=== PATIENT | female | born 1930 | race Caucasian/White ===

== ENCOUNTER 2016-07-20 14:16 | Emergency (ER) | payer MEDICARE, OTHER ==
--- NOTE | 2016-07-20 17:31 | DIAGNOSTIC IMAGING REPORT ---
PROCEDURE: XR HIP 2VW W W/O AP PELVIS-LT INDICATION: TRAUMA/INJURY TECHNIQUE: AP view of the pelvis and hips with lateral view of the left hip. COMPARISON: None. FINDINGS: LEFT HIP: Mildly decreased mineralization. No fracture. Normal bony alignment. Moderate degenerative joint space loss in the femoral acetabular joint. No unusual adjacent calcifications. Moderate to heavy calcific atherosclerosis. PELVIS: Mildly decreased mineralization. Pelvic rings are intact. No fractures. Normal alignment. Mild to moderate degenerative change at the right hip joint. Moderate retained stool in the distal colon and rectum. Moderate to heavy calcific atherosclerosis. Partially imaged lower lumbar scoliosis. IMPRESSION: 1. Intact left hip. 2. Moderate obstipation. 3. Moderate to heavy calcific atherosclerosis. 4. Degenerative changes in the femoral acetabular joints.
--- NOTE | 2016-07-20 17:33 | DIAGNOSTIC IMAGING REPORT ---
PROCEDURE: XR ABDOMEN 1 VIEW INDICATION: ABDOMINAL DISTENTION TECHNIQUE: Single view upright abdomen. COMPARISON: None. FINDINGS: No free intraperitoneal air. Nonspecific, nonobstructive bowel gas pattern. Moderate amount of retained stool in the distal colon and rectum. No suspicious mass, mass effect, or calcifications. Moderate scoliosis of the thoracolumbar spine. Severe compression fracture of T12 with kyphoplasty changes. Moderate atherosclerosis. IMPRESSION: 1. Moderate distal colon and rectal obstipation. 2. No evidence of small bowel obstruction. 3. Atherosclerosis. 4. Scoliosis.
--- NOTE | 2016-07-20 18:53 | ED ORDER SUMMARY ---
..... Patient: ARIANA ROLAND OrderSheet [facility] VisitID: [id number] [address] [place] [address] 86y, F Registration Date/Time: 07/20/2016 ORDER SHEET Weight: 36.2 kg (stated) Allergies: No Known Drug Allergy GENERAL ORDERS: Hip 2V Left w AP Pelvis Urgent (16:31 07/20/2016 ABlanchette PA-C) (Ack 16:34 Lien) (17:34 Mariusz) Abdomen 1V Urgent (16:07/20/2016 ABlanchette PA-C) (Ack 16:34 Lien) (17:34 Mariusz) MEDICATION ORDERS: Acetaminophen PO 325 mg (NOW) (15:07/20/2016 ABlanchette PA-C) (Cancelled: Other15:20 ABlanchette PA-C) Benadryl PO 12.5 mg (NOW) (15:07/20/2016 ABlanchette PA-C) (Cancelled: Other15:20 ABlanchette PA-C) IV FLUIDS: ORDER SHEET NOTES: [Electronically signed by Opal Griffin R.N. (19:07/20/2016)] [Electronically signed by Hillary Underwood PA-C (00:15 07/21/2016)] [Electronically locked/signed by Opal Griffin R.N. (19:07/20/2016)]
--- NOTE | 2016-07-20 18:53 | ED NURSING NOTES ---
Clinical Report - Nurses [facility] [address] [place] [address] 07/20/2016 14:24 Patient: ARIANA ROLAND TRIAGE Triage time 14:39. Acuity: LEVEL 3. Chief Complaint: ABDOMINAL PAIN. Alert. No acute distress. MARK COMA SCORE: [place] Coma Scale: 15- eyes open spontaneously (4); best verbal response- oriented x 4 (5); best motor response- obeys commands (6). --14:53 Opal Griffin R.N. 14:39 07/20/16. BP: 134/74. HR: 80. RR: 18. O2 saturation: 94% on room air. Temp: 98.7 F (oral). Pain level now: cannot qualify. --14:53 Opal Griffin R.N. Weight: 36.2 kg stated. Height/Length: 54 inches Per Patient. BMI: 19.3. --14:51 Opal Griffin R.N. Medications Vit D3 61299 units, weekly. --15:00 Opal Griffin R.N. Memantine HCl Oral (Tablet 10 mg) 2 tablets, daily. --15:01 Opal Griffin R.N. AmLODIPine Besylate Oral (Tablet 10 mg) 1 tablet, daily. --15:01 Opal Griffin R.N. Allergies No Known Drug Allergy. --15:11 Opal Griffin R.N. History Arrived by private vehicle. Historian: family. Accompanied by family. Primary physician (Faraz). Onset. (a "couple of days ago"). Describes the quality as "pain". Relates location as generalized across abdomen. ( daughter here states her mother's abd is distended, Lives with her daughter). Reports last BM was yesterday. No nausea or vomiting. 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 SOCIAL HX: Former smoker. No alcohol use or drug use. LEARNING NEEDS ASSESSMENT: The learning needs assessment revealed no barriers. FALL RISK ASSESSMENT: Fall risk assessment completed. Risk factors identified include patient medications and impairment of mobility. Fall interventions initiated. Patient placed on stretcher. Side rails up x2. Brakes on Bed in low position. Family at bedside. FUNCTIONAL ASSESSMENT: Functional assessment performed: requires assistance with the activities of daily living; mobility impairment present- this mobility impairment is an ongoing problem; cognitive impairment- senile dementia- this cognitive impairment is an ongoing problem. --14:53 Opal Griffin R.N. PROBLEMS: Scoliosis. Degenerative Joint Disease. Hypertension. COPD - Chronic Obstructive Pulmonary Disease. --14:49 Opal Griffin R.N. UTI - Urinary Tract Infection. --14:51 Opal Griffin R.N. ADDITIONAL SURGERIES: Back Surgery. --14:49 Opal Griffin R.N. Hysterectomy. --14:49 Opal Griffin R.N. Assessment GENERAL / NEURO / PSYCH: Alert. Oriented X 4. Appears in no acute distress. Patient appears calm and cooperative. RESPIRATORY: Respirations not labored. SKIN: Skin is warm and dry. --14:53 Opal Griffin R.N. Interventions ID band on patient. To treatment room. --14:53 Opal Griffin R.N. PHYSICAL ASSESSMENT 14:53 07/20/16. To room via wheelchair. Patient gowned. GENERAL / NEURO / PSYCH: Alert. Appears in no acute distress. RESPIRATORY: Respirations not labored. CVS: Capillary refill less than 2 seconds. SKIN: Skin is warm and dry. --14:53 Opal Griffin R.N. NURSING PROGRESS NOTES 14:53 07/20/16. Patient gowned. Head of bed elevated. Call light placed in reach. Side rails up x 2. Bed placed in lowest position. Brakes of bed on. --14:53 Opal Griffin R.N. 16:30. The patient is calm and resting quietly. Overall patient status is the same- she states feels the same. SKIN: Skin is warm and dry. --16:40 Opal Griffin R.N. 16:41 07/20/16. Patient transported to radiology by stretcher with tech. --16:41 Opal Griffin R.N. Patient returned from radiology by stretcher with tech. --17:07 Opal Griffin R.N. 17:07 07/20/16. :family confirmed. Catheterized urine collected; sample sent to lab. Specimen labeled in the presence of the patient (with femcath kit per aseptic tech). --17:07 Opal Griffin R.N. [id number] fleets mineral oil enema given, pt lies on side holding the fluid, BSC in room. --18:16 Opal Griffin R.N. 18:35 pt had large formed BM, assisted to dress by family, discharge done by PA. --19:15 Opal Griffin R.N. 16:00 07/20/16. BP: 132/64. HR: 70. RR: 18. O2 saturation: 96% on room air. --19:18 Opal Griffin R.N. 17:30 07/20/16. BP: 134/69. HR: 72. RR: 18. O2 saturation: 97% on room air. --19:19 Opal Griffin R.N. DISPOSITION / DISCHARGE Departure time: 1855. The patient was discharged by the physician assistant women's rowing coach. --19:14 Opal Griffin R.N. 19:13 07/20/16. BP: 154/87. HR: 76. RR: 18. O2 saturation: 97% on room air. Pain level now: cannot qualify. --19:14 Opal Griffin R.N. Locked/Released at 07/20/2016 19:19 by Opal Griffin R.N.
--- NOTE | 2016-07-20 18:53 | ED CLINICAL REPORT ---
Clinical Report - Physicians/Mid Levels [facility] [address] [place] [address] 07/20/2016 14:24 Patient: ARIANA NIXON Time Seen: 1446. Arrived- By private vehicle. Historian- patient. HISTORY OF PRESENT ILLNESS Chief Complaint: ABDOMINAL PAIN. It is described as dull and it is described as located in the left lower quadrant. At its maximum, severity described as 2 / 10. When seen in the E.D., severity described as 2 / 10. This started yesterday brought in by daughter who states she has some discomfort of her left abdomen,and that 'her belly button is displaced and that wasn't like that before' and possibly her left hip hurts her...pt lives with her daughter who has been her sole career agent for the past 15 months, and states she has insurance that will cover respite care, but needs to go through the ER for it to be covered...she states she is having increased difficultey gettiing her mother to move, walk, and feels she is not able to fully care for her in an ongoing capacity. and is still present. No nausea, loss of appetite, vomiting or diarrhea. Similar symptoms previously: Recent medical care: The patient was seen recently at another facility in a clinic. REVIEW OF SYSTEMS The patient has had constipation. No difficulty with urination, fever or chills. PAST HISTORY See nurses notes. constipation. Problems: UTI - Urinary Tract Infection. COPD - Chronic Obstructive Pulmonary Disease. Hypertension. Scoliosis. Degenerative Joint Disease. Medications: AmLODIPine Besylate Oral (Tablet 10 mg) 1 tablet, daily. Memantine HCl Oral (Tablet 10 mg) 2 tablets, daily. Vit D3 79037 units, weekly. Allergies: No Known Drug Allergy. SOCIAL HISTORY Former smoker. No alcohol use or drug use. FAMILY HISTORY Negative. ADDITIONAL NOTES The nursing notes have been reviewed with agreement regarding the chief complaint, HPI, ROS, PMH and patient medications and allergies. PHYSICAL EXAM Vital Signs: 07/20/2016 14:39 BP: 134/74. HR: 80. RR: 18. O2 saturation: 94%. Temp: 98.7 F. Have been reviewed. Appearance: Alert. Oriented X3. No acute distress. Eyes: Pupils equal, round and reactive to light. Eyes normal inspection. ENT: Ears normal. Nose normal. Pharynx normal. Neck: Normal inspection. Neck supple. CVS: Normal heart rate and rhythm. Heart sounds normal. Pulses normal. Respiratory: No respiratory distress. Breath sounds normal. Chest nontender. Abdomen: Soft and nontender. Bowel sounds normal. No organomegaly. No mass. Skin: Skin warm and dry. Normal skin color. No rash. Normal skin turgor. Extremities: No lower extremity edema. LABS, X-RAYS, AND EKG X-Rays: KUB negative. Left hip negative. KUB: (Name: Ariana Nixon : 1930 MR#: [id number] Ordering Provider: MAYUR TORRES Exam(s): XR ABDOMEN 1 VIEW Date of Exam: 07/20/2016 __ PROCEDURE: XR ABDOMEN 1 VIEW INDICATION: ABDOMINAL DISTENTION TECHNIQUE: Single view upright abdomen. COMPARISON: None. FINDINGS: No free intraperitoneal air. Nonspecific, nonobstructive bowel gas pattern. Moderate amount of retained stool in the distal colon and rectum. No suspicious mass, mass effect, or calcifications. Moderate scoliosis of the thoracolumbar spine. Severe compression fracture of T12 with kyphoplasty changes. Moderate atherosclerosis. IMPRESSION: 1. Moderate distal colon and rectal obstipation. 2. No evidence of small bowel obstruction. 3. Atherosclerosis. 4. Scoliosis. Electronically Final signed by:Ayaka Alvarado MD 07/20/2016 5:33:21 PM Technologist: CARI). The X-rays were independently viewed by me, interpreted by the radiologist and discussed with the radiologist. Lt Hip X-ray: No fracture. (Name: Ariana Nixon : 1930 MR#: [id number] Ordering Provider: MAYUR TORRES Exam(s): XR HIP 2VW W W/O AP PELVIS-LT Date of Exam: 07/20/2016 __ PROCEDURE: XR HIP 2VW W W/O AP PELVIS-LT INDICATION: TRAUMA/INJURY TECHNIQUE: AP view of the pelvis and hips with lateral view of the left hip. COMPARISON: None. FINDINGS: LEFT HIP: Mildly decreased mineralization. No fracture. Normal bony alignment. Moderate degenerative joint space loss in the femoral acetabular joint. No unusual adjacent calcifications. Moderate to heavy calcific atherosclerosis. PELVIS: Mildly decreased mineralization. Pelvic rings are intact. No fractures. Normal alignment. Mild to moderate degenerative change at the right hip joint. Moderate retained stool in the distal colon and rectum. Moderate to heavy calcific atherosclerosis. Partially imaged lower lumbar scoliosis. IMPRESSION: 1. Intact left hip. 2. Moderate obstipation. 3. Moderate to heavy calcific atherosclerosis. 4. Degenerative changes in the femoral acetabular joints. Electronically Final signed by:Ayaka Alvarado MD 07/20/2016 5:31:45 PM Technologist: CARI). The X-rays were independently viewed by me, interpreted by the radiologist and discussed with the radiologist. PROGRESS AND PROCEDURES Course of Care: 14:53 07/20/16. Patient gowned. Head of bed elevated. Call light placed in reach. Side rails up x 2. Bed placed in lowest position. Brakes of bed on. --14:53 Opal Griffin, RCrispinNCrispin 16:30. The patient is calm and resting quietly. Overall patient status is the same- she states feels the same. SKIN: Skin is warm and dry. --16:40 Opal Griffin R.N. 16:41 07/20/16. Patient transported to radiology by stretcher with tech. --16:41 Opal Griffin R.N. Patient returned from radiology by stretcher with tech. --17:07 Opal Griffin R.N. 17:07 07/20/16. :family confirmed. Catheterized urine collected; sample sent to lab. Specimen labeled in the presence of the patient (with femcath kit per aseptic tech). --17:07 Opal Griffin R.N. [id number] fleets mineral oil enema given, pt lies on side holding the fluid, BSC in room. --18:16 Opal Griffin R.N. 18:35 pt had large formed BM, assisted to dress by family, discharge done by PA. --19:15 Opal Griffin R.N. 16:00 07/20/16. BP: 132/64. HR: 70. RR: 18. O2 saturation: 96% on room air. --19:18 Opal Griffin R.N. 17:30 07/20/16. BP: 134/69. HR: 72. RR: 18. O2 saturation: 97% on room air. --19:19 Opal Griffin R.N. Patient is stable. Physical exam findings are improved. Symptoms much better. CLINICAL IMPRESSION Constipation INSTRUCTIONS No strenuous activity. Drink plenty of fluids. (fruit paste recipe you can find online daily for avoidance of contipation discuss with Dr. blakely respite care vs placement in NH or assisted living.). Warnings: GENERAL WARNINGS: Return or contact your physician immediately if your condition worsens or changes unexpectedly, if not improving as expected, or if other problems arise. Your Current Medications: CONTINUE TAKING THE FOLLOWING MEDICATIONS: AmLODIPine Besylate Oral : Tablet 10 mg, 1 tablet daily. Memantine HCl Oral : Tablet 10 mg, 2 tablets daily. Vit D3* : 22922 units weekly. Follow-up: Follow up with your doctor if not better. Understanding of the discharge instructions verbalized by patient and parent. (Electronically signed by Mayur Torres PA-C 07/21/2016 0:15)
--- NOTE | 2016-07-20 18:53 | ED ORDER SUMMARY ---
..... Patient: ARIANA ROLAND OrderSheet [facility] VisitID: [id number] [address] [place] [address] 86y, F Registration Date/Time: 07/20/2016 ORDER SHEET Weight: 36.2 kg (stated) Allergies: No Known Drug Allergy GENERAL ORDERS: Hip 2V Left w AP Pelvis Urgent (16:31 07/20/2016 ABlanchette PA-C) (Ack 16:34 Lien) (17:34 Mariusz) Abdomen 1V Urgent (16:07/20/2016 ABlanchette PA-C) (Ack 16:34 Lien) (17:34 Mariusz) MEDICATION ORDERS: Acetaminophen PO 325 mg (NOW) (15:07/20/2016 ABlanchette PA-C) (Cancelled: Other15:20 ABlanchette PA-C) Benadryl PO 12.5 mg (NOW) (15:07/20/2016 ABlanchette PA-C) (Cancelled: Other15:20 ABlanchette PA-C) IV FLUIDS: ORDER SHEET NOTES: [Electronically signed by Opal Griffin R.N. (19:07/20/2016)] [Electronically signed by Hillary Underwood PA-C (00:15 07/21/2016)] [Electronically locked/signed by Opal Griffin R.N. (19:07/20/2016)]
--- NOTE | 2016-07-20 18:53 | ED NURSING NOTES ---
Clinical Report - Nurses [facility] [address] [place] [address] 07/20/2016 14:24 Patient: ARIANA ROLAND TRIAGE Triage time 14:39. Acuity: LEVEL 3. Chief Complaint: ABDOMINAL PAIN. Alert. No acute distress. MARK COMA SCORE: Issue Coma Scale: 15- eyes open spontaneously (4); best verbal response- oriented x 4 (5); best motor response- obeys commands (6). --14:53 Opal Griffin R.N. 14:39 07/20/16. BP: 134/74. HR: 80. RR: 18. O2 saturation: 94% on room air. Temp: 98.7 F (oral). Pain level now: cannot qualify. --14:53 Opal Griffin R.N. Weight: 36.2 kg stated. Height/Length: 54 inches Per Patient. BMI: 19.3. --14:51 Opal Griffin R.N. Medications Vit D3 14358 units, weekly. --15:00 Opal Griffin R.N. Memantine HCl Oral (Tablet 10 mg) 2 tablets, daily. --15:01 Opal Griffin R.N. AmLODIPine Besylate Oral (Tablet 10 mg) 1 tablet, daily. --15:01 Opal Griffin R.N. Allergies No Known Drug Allergy. --15:11 Opal Griffin R.N. History Arrived by private vehicle. Historian: family. Accompanied by family. Primary physician (Faraz). Onset. (a "couple of days ago"). Describes the quality as "pain". Relates location as generalized across abdomen. ( daughter here states her mother's abd is distended, Lives with her daughter). Reports last BM was yesterday. No nausea or vomiting. 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 SOCIAL HX: Former smoker. No alcohol use or drug use. LEARNING NEEDS ASSESSMENT: The learning needs assessment revealed no barriers. FALL RISK ASSESSMENT: Fall risk assessment completed. Risk factors identified include patient medications and impairment of mobility. Fall interventions initiated. Patient placed on stretcher. Side rails up x2. Brakes on Bed in low position. Family at bedside. FUNCTIONAL ASSESSMENT: Functional assessment performed: requires assistance with the activities of daily living; mobility impairment present- this mobility impairment is an ongoing problem; cognitive impairment- senile dementia- this cognitive impairment is an ongoing problem. --14:53 Opal Griffin R.N. PROBLEMS: Scoliosis. Degenerative Joint Disease. Hypertension. COPD - Chronic Obstructive Pulmonary Disease. --14:49 Opal Griffin R.N. UTI - Urinary Tract Infection. --14:51 Opal Griffin R.N. ADDITIONAL SURGERIES: Back Surgery. --14:49 Opal Griffin R.N. Hysterectomy. --14:49 Opal Griffin R.N. Assessment GENERAL / NEURO / PSYCH: Alert. Oriented X 4. Appears in no acute distress. Patient appears calm and cooperative. RESPIRATORY: Respirations not labored. SKIN: Skin is warm and dry. --14:53 Opal Griffin R.N. Interventions ID band on patient. To treatment room. --14:53 Opal Griffin R.N. PHYSICAL ASSESSMENT 14:53 07/20/16. To room via wheelchair. Patient gowned. GENERAL / NEURO / PSYCH: Alert. Appears in no acute distress. RESPIRATORY: Respirations not labored. CVS: Capillary refill less than 2 seconds. SKIN: Skin is warm and dry. --14:53 Opal Griffin R.N. NURSING PROGRESS NOTES 14:53 07/20/16. Patient gowned. Head of bed elevated. Call light placed in reach. Side rails up x 2. Bed placed in lowest position. Brakes of bed on. --14:53 Opal Griffin R.N. 16:30. The patient is calm and resting quietly. Overall patient status is the same- she states feels the same. SKIN: Skin is warm and dry. --16:40 Opal Griffin R.N. 16:41 07/20/16. Patient transported to radiology by stretcher with tech. --16:41 Opal Griffin R.N. Patient returned from radiology by stretcher with tech. --17:07 Opal Griffin R.N. 17:07 07/20/16. :family confirmed. Catheterized urine collected; sample sent to lab. Specimen labeled in the presence of the patient (with femcath kit per aseptic tech). --17:07 Opal Griffin R.N. [id number] fleets mineral oil enema given, pt lies on side holding the fluid, BSC in room. --18:16 Opal Griffin R.N. 18:35 pt had large formed BM, assisted to dress by family, discharge done by PA. --19:15 Opal Griffin R.N. 16:00 07/20/16. BP: 132/64. HR: 70. RR: 18. O2 saturation: 96% on room air. --19:18 Opal Griffin R.N. 17:30 07/20/16. BP: 134/69. HR: 72. RR: 18. O2 saturation: 97% on room air. --19:19 Opal Griffin R.N. DISPOSITION / DISCHARGE Departure time: 1855. The patient was discharged by the physician fire control assistant. --19:14 Opal Griffin R.N. 19:13 07/20/16. BP: 154/87. HR: 76. RR: 18. O2 saturation: 97% on room air. Pain level now: cannot qualify. --19:14 Opal Griffin R.N. Locked/Released at 07/20/2016 19:19 by Opal Griffin R.N.
--- NOTE | 2016-07-20 18:53 | ED CLINICAL REPORT ---
Clinical Report - Physicians/Mid Levels [facility] [address] [place] [address] 07/20/2016 14:24 Patient: ARIANA NIXON Time Seen: 1446. Arrived- By private vehicle. Historian- patient. HISTORY OF PRESENT ILLNESS Chief Complaint: ABDOMINAL PAIN. It is described as dull and it is described as located in the left lower quadrant. At its maximum, severity described as 2 / 10. When seen in the E.D., severity described as 2 / 10. This started yesterday brought in by daughter who states she has some discomfort of her left abdomen,and that 'her belly button is displaced and that wasn't like that before' and possibly her left hip hurts her...pt lives with her daughter who has been her sole caregiver services home for the past 15 months, and states she has insurance that will cover respite care, but needs to go through the ER for it to be covered...she states she is having increased difficultey gettiing her mother to move, walk, and feels she is not able to fully care for her in an ongoing capacity. and is still present. No nausea, loss of appetite, vomiting or diarrhea. Similar symptoms previously: Recent medical care: The patient was seen recently at another facility in a clinic. REVIEW OF SYSTEMS The patient has had constipation. No difficulty with urination, fever or chills. PAST HISTORY See nurses notes. constipation. Problems: UTI - Urinary Tract Infection. COPD - Chronic Obstructive Pulmonary Disease. Hypertension. Scoliosis. Degenerative Joint Disease. Medications: AmLODIPine Besylate Oral (Tablet 10 mg) 1 tablet, daily. Memantine HCl Oral (Tablet 10 mg) 2 tablets, daily. Vit D3 14322 units, weekly. Allergies: No Known Drug Allergy. SOCIAL HISTORY Former smoker. No alcohol use or drug use. FAMILY HISTORY Negative. ADDITIONAL NOTES The nursing notes have been reviewed with agreement regarding the chief complaint, HPI, ROS, PMH and patient medications and allergies. PHYSICAL EXAM Vital Signs: 07/20/2016 14:39 BP: 134/74. HR: 80. RR: 18. O2 saturation: 94%. Temp: 98.7 F. Have been reviewed. Appearance: Alert. Oriented X3. No acute distress. Eyes: Pupils equal, round and reactive to light. Eyes normal inspection. ENT: Ears normal. Nose normal. Pharynx normal. Neck: Normal inspection. Neck supple. CVS: Normal heart rate and rhythm. Heart sounds normal. Pulses normal. Respiratory: No respiratory distress. Breath sounds normal. Chest nontender. Abdomen: Soft and nontender. Bowel sounds normal. No organomegaly. No mass. Skin: Skin warm and dry. Normal skin color. No rash. Normal skin turgor. Extremities: No lower extremity edema. LABS, X-RAYS, AND EKG X-Rays: KUB negative. Left hip negative. KUB: (Name: Ariana Nixon : 1930 MR#: [id number] Ordering Provider: MAYUR TORRES Exam(s): XR ABDOMEN 1 VIEW Date of Exam: 07/20/2016 __ PROCEDURE: XR ABDOMEN 1 VIEW INDICATION: ABDOMINAL DISTENTION TECHNIQUE: Single view upright abdomen. COMPARISON: None. FINDINGS: No free intraperitoneal air. Nonspecific, nonobstructive bowel gas pattern. Moderate amount of retained stool in the distal colon and rectum. No suspicious mass, mass effect, or calcifications. Moderate scoliosis of the thoracolumbar spine. Severe compression fracture of T12 with kyphoplasty changes. Moderate atherosclerosis. IMPRESSION: 1. Moderate distal colon and rectal obstipation. 2. No evidence of small bowel obstruction. 3. Atherosclerosis. 4. Scoliosis. Electronically Final signed by:Ayaka Alvarado MD 07/20/2016 5:33:21 PM Technologist: CARI). The X-rays were independently viewed by me, interpreted by the radiologist and discussed with the radiologist. Lt Hip X-ray: No fracture. (Name: Ariana Nixon : 1930 MR#: [id number] Ordering Provider: MAYUR TORRES Exam(s): XR HIP 2VW W W/O AP PELVIS-LT Date of Exam: 07/20/2016 __ PROCEDURE: XR HIP 2VW W W/O AP PELVIS-LT INDICATION: TRAUMA/INJURY TECHNIQUE: AP view of the pelvis and hips with lateral view of the left hip. COMPARISON: None. FINDINGS: LEFT HIP: Mildly decreased mineralization. No fracture. Normal bony alignment. Moderate degenerative joint space loss in the femoral acetabular joint. No unusual adjacent calcifications. Moderate to heavy calcific atherosclerosis. PELVIS: Mildly decreased mineralization. Pelvic rings are intact. No fractures. Normal alignment. Mild to moderate degenerative change at the right hip joint. Moderate retained stool in the distal colon and rectum. Moderate to heavy calcific atherosclerosis. Partially imaged lower lumbar scoliosis. IMPRESSION: 1. Intact left hip. 2. Moderate obstipation. 3. Moderate to heavy calcific atherosclerosis. 4. Degenerative changes in the femoral acetabular joints. Electronically Final signed by:Ayaka Alvarado MD 07/20/2016 5:31:45 PM Technologist: CARI). The X-rays were independently viewed by me, interpreted by the radiologist and discussed with the radiologist. PROGRESS AND PROCEDURES Course of Care: 14:53 07/20/16. Patient gowned. Head of bed elevated. Call light placed in reach. Side rails up x 2. Bed placed in lowest position. Brakes of bed on. --14:53 Opal Griffin, RCrispinNCrispin 16:30. The patient is calm and resting quietly. Overall patient status is the same- she states feels the same. SKIN: Skin is warm and dry. --16:40 Opal Griffin R.N. 16:41 07/20/16. Patient transported to radiology by stretcher with tech. --16:41 Opal Griffin R.N. Patient returned from radiology by stretcher with tech. --17:07 Opal Griffin R.N. 17:07 07/20/16. :family confirmed. Catheterized urine collected; sample sent to lab. Specimen labeled in the presence of the patient (with femcath kit per aseptic tech). --17:07 Opal Griffin R.N. [id number] fleets mineral oil enema given, pt lies on side holding the fluid, BSC in room. --18:16 Opal Griffin R.N. 18:35 pt had large formed BM, assisted to dress by family, discharge done by PA. --19:15 Opal Griffin R.N. 16:00 07/20/16. BP: 132/64. HR: 70. RR: 18. O2 saturation: 96% on room air. --19:18 Opal Griffin R.N. 17:30 07/20/16. BP: 134/69. HR: 72. RR: 18. O2 saturation: 97% on room air. --19:19 Opal Griffin R.N. Patient is stable. Physical exam findings are improved. Symptoms much better. CLINICAL IMPRESSION Constipation INSTRUCTIONS No strenuous activity. Drink plenty of fluids. (fruit paste recipe you can find online daily for avoidance of contipation discuss with Dr. blakely respite care vs placement in NH or assisted living.). Warnings: GENERAL WARNINGS: Return or contact your physician immediately if your condition worsens or changes unexpectedly, if not improving as expected, or if other problems arise. Your Current Medications: CONTINUE TAKING THE FOLLOWING MEDICATIONS: AmLODIPine Besylate Oral : Tablet 10 mg, 1 tablet daily. Memantine HCl Oral : Tablet 10 mg, 2 tablets daily. Vit D3* : 18916 units weekly. Follow-up: Follow up with your doctor if not better. Understanding of the discharge instructions verbalized by patient and parent. (Electronically signed by Mayur Torres PA-C 07/21/2016 0:15)
--- NOTE | 2016-07-21 00:16 | ED MAR SUMMARY ---
..... Medication Administration Record [facility] [address] [place], [place] [id number] Patient: ARIANA ROLAND Visit ID: [id number] 86y, F Weight: 36.2 kg Height/Length: 54 in BMI: 19.3 ALLERGIES: No Known Drug Allergy
--- NOTE | 2016-07-21 00:16 | ED DISCHARGE INSTRUCTIONS ---
Patient: ARIANA ROLAND General Instructions [facility] VisitID: [id number] [place] [address] 86y, F Registration Date/Time: 07/20/2016 Constipation INSTRUCTIONS No strenuous activity. Drink plenty of fluids. (fruit paste recipe you can find online daily for avoidance of contipation discuss with Dr. blakely respite care vs placement in NH or assisted living.). Warnings: GENERAL WARNINGS: Return or contact your physician immediately if your condition worsens or changes unexpectedly, if not improving as expected, or if other problems arise. Your Current Medications: CONTINUE TAKING THE FOLLOWING MEDICATIONS: AmLODIPine Besylate Oral : Tablet 10 mg, 1 tablet daily. Memantine HCl Oral : Tablet 10 mg, 2 tablets daily. Vit D3* : 65446 units weekly. Follow-up: Follow up with your doctor if not better. Understanding of the discharge instructions verbalized by patient and parent. ADDITIONAL INFORMATION Constipation (Adult) Constipation is bowel movements that are less frequent than usual. Stools often become very hard and difficult to pass. This may lead to abdominal pain and bloating. It may also cause painful bowel movements. Constipation may be due to a diet thats low in fiber. Some medications, especially pain medications, can also cause it. Constipation may be treated with enemas, suppositories, laxatives or stool softeners. Your doctor will advise you which will work best for you. Follow the advice below to help avoid this problem in the future. Home Care Medication: Take any medicines as directed. Some laxatives are safe only for occasional use. Others can be taken on a regular basis. Talk to your doctor or pharmacist if you have questions. General Care: Prescription pain medications can cause constipation. If you are prescribed pain medications, ask the doctor whether you should also take a stool softener. A diet high in fiber with plenty of fluids helps to maintain regular, soft bowel movements. The following foods are good sources of dietary fiber: Cereals and breads: Whole grain cereal with bran, oatmeal, rolled oats, whole grain breads Fruits: All fruits (fresh and dried), raisins, prunes, apricots, berries, figs Vegetables: Any fresh vegetables, especially peas, broccoli, brussels sprouts, winter squash, green beans, cauliflower, dyer beans, carrots Other: Popcorn, brown rice Drink plenty of water when you increase the amount of fiber you eat. Follow Up with your doctor or return to this facility if symptoms do not improve in the next few days. You may require further tests or a referral to a specialist. Get Prompt Medical Attention if any of the following occur: Fever over 100.4F (38C) Failure to resume normal bowel movements Increasing abdominal or back pain Nausea or vomiting Abdominal swelling Blood in the stool Weakness, dizziness or fainting Unexpected vaginal bleeding Fecal Impaction (Treated) Fecal Impaction is a severe form of constipation. There is a large amount of hard stool in the rectum that cannot be passed. Although your impaction has been relieved, it may be necessary to continue treatment at home as advised by your doctor. Follow the advice below to help avoid this problem in the future. Home Care Medication: Take any medicines as directed. Some laxatives are safe only for occasional use. Others can be taken on a regular basis. Talk to your doctor or pharmacist if you have questions. General Care: Prescription pain medications can cause constipation. If you are prescribed pain medications, ask the doctor whether you should also take a stool softener. A diet high in fiber with plenty of fluids helps to maintain regular, soft bowel movements. The following foods are good sources of dietary fiber: Cereals and breads: Whole-grain cereal with bran, oatmeal, rolled oats, whole-grain breads Fruits: All fruits (fresh and dried), raisins, prunes, apricots, berries, figs Vegetables: Any fresh vegetables, especially peas, broccoli, brussels sprouts, winter squash, green beans, cauliflower, dyer beans, carrots Other: Popcorn, brown rice Drink plenty of water when you increase the amount of fiber you eat. Follow Up with your doctor or return to this facility if symptoms do not improve in the next few days. You may require further tests or a referral to a specialist. Get Prompt Medical Attention if any of the following occur: Fever over 100.4F (38C) Failure to resume normal bowel movements Increasing abdominal or back pain Nausea or vomiting Abdominal swelling Blood in the stool Weakness, dizziness or fainting Unexpected vaginal bleeding You have been given the following additional information: Constipation (Adult) Fecal Impaction, Treated No strenuous activity. (Electronically signed by Hillary Underwood PA-C 07/21/2016 0:15)
--- NOTE | 2016-07-21 00:16 | ED MED RECONCILIATION SUMMARY ---
Patient: ARIANA ROLAND Medication Reconciliation Report [facility] VisitID: [id number] [address] [place] [address] 86y, F Registration Date/Time: 07/20/2016 Weight: 36.2 kg Height/Length: 54 in. BMI: 19.3 ALLERGIES: No Known Drug Allergy The patient's Home Medications are listed below: CONTINUE TAKING THE FOLLOWING MEDICATIONS: AmLODIPine Besylate Oral (10 mg) 1 tablet, daily Memantine HCl Oral (10 mg) 2 tablets, daily Vit D3 98720 units, weekly The source(s) of the original Home Medication information: Not obtained. The following Medications were given to the patient in the Emergency Department: None. The following Medications were prescribed to the patient: None.
--- NOTE | 2016-07-21 00:16 | ED MAR SUMMARY ---
..... Medication Administration Record [facility] [address] [place], [place] [id number] Patient: ARIANA ROLAND Visit ID: [id number] 86y, F Weight: 36.2 kg Height/Length: 54 in BMI: 19.3 ALLERGIES: No Known Drug Allergy
--- NOTE | 2016-07-21 00:16 | ED MED RECONCILIATION SUMMARY ---
Patient: ARIANA ROLAND Medication Reconciliation Report [facility] VisitID: [id number] [address] [place] [address] 86y, F Registration Date/Time: 07/20/2016 Weight: 36.2 kg Height/Length: 54 in. BMI: 19.3 ALLERGIES: No Known Drug Allergy The patient's Home Medications are listed below: CONTINUE TAKING THE FOLLOWING MEDICATIONS: AmLODIPine Besylate Oral (10 mg) 1 tablet, daily Memantine HCl Oral (10 mg) 2 tablets, daily Vit D3 12588 units, weekly The source(s) of the original Home Medication information: Not obtained. The following Medications were given to the patient in the Emergency Department: None. The following Medications were prescribed to the patient: None.
== END 2016-07-20 18:55 | disposition home or self-care (01) ==
LOC: ED SRH 14:16
DX: K59.00 Constipation, unspecified (principal); I10 Essential (primary) hypertension; J44.9 Chronic obstructive pulmonary disease, unspecified; Z87.891 Personal history of nicotine dependence